=== PATIENT | male | born 1975 | race Caucasian/White ===

== ENCOUNTER 2024-12-18 08:53 | Emergency (ER) | payer BC ==
[2024-12-18] MEDS ORDERED: Cyclobenzaprine 10 MG TAB ONE (09:27)
[2024-12-18] MEDS ORDERED: Ketorolac Tromethamine 30 MG (1 mL) VIAL ONE (09:27)
== END 2024-12-18 09:53 | disposition home or self-care (01) ==
LOC: CSHERS 08:53
DX: M54.50 Low back pain, unspecified (principal); I10 Essential (primary) hypertension; X50.0XXA Overexertion from strenuous movement or load, initial encounter
CPT/HCPCS: 96372; 99283; J1885